=== PATIENT | female | born 1985 | race Caucasian/White ===

== ENCOUNTER → 2019-10-05 15:05 | Outpatient (CLI) | payer OTHER, MEDICAID, SELFPAY ==
[2019-10-05 15:41] LABS: Add Manual Diff / Slide Review NO; Basophils Absolute Auto 0 /uL (0-100); Basophils Percent Auto 0.4 % (0-2); Eosinophils Absolute Auto 0 /uL (0-450); Eosinophils Percent Auto 0.3 % (2-4); Hematocrit 31.7 % (36-46); Hemoglobin 10.6 g/dL (12.0-16.0); Lymphocytes Absolute Auto 2500 /uL (1100-4500); Lymphocytes Percent Auto 25.3 % (25-40); Mean Corpuscular HGB Conc 33.3 % (30-36); Mean Corpuscular Hemoglobin 26.9 PG (26-34); Mean Corpuscular Volume 80.7 fL (80-100); Monocytes Absolute Auto 700 /uL (0-900); Monocytes Percent Auto 6.9 % (3-14); Neutrophils Absolute Auto 6700 /uL (1500-7000); Neutrophils Percent Auto 67.1 % (50-75); Platelet Count 320 X10^3/uL (150-400); Red Blood Cell Count 3.93 X10^6/uL (4.0-5.2); Red Cell Distribution Width 15.6 % (11.6-14.8); White Blood Cell Count 9.9 X10^3/uL (4.5-11.0)
[2019-10-05 15:46] LABS: Appearance Urine UA SL CLOUDY; Bilirubin Urine UA NEGATIVE (NEGATIVE); Color Urine UA YELLOW; Glucose Urine UA NEGATIVE (Negative); Ketones Urine UA NEGATIVE (NEGATIVE); Leukocyte Esterase Urine UA 3+ (NEGATIVE); Nitrite Urine UA NEGATIVE (Negative); Occult Blood Urine UA NEGATIVE (Negative); Protein Urine UA NEGATIVE (Negative); Urobilinogen Urine UA 0.2 E.U./dL (0.2)
[2019-10-05 15:50] LABS: pH Urine UA 6.5 (4.5-8.0)
[2019-10-05 15:51] LABS: RBC Urine None Seen (0-5/HPF)
[2019-10-05 16:15] LABS: Amorphous Sediment Urine 2+; Bacteria Urine Moderate (10-30); Mucus Urine 1+ (Negative); Squamous Epithelial Cell Urine 10-30 /HPF (0-5/HPF); WBC Urine 10-30/HPF (0-5/HPF)
[2019-10-05 16:37] LABS: Hepatitis B Surface Antigen NEGATIVE s/c (NEGATIVE); Rubella Antibody IgG 26.3 IU/mL (>15)
[2019-10-05 16:54] LABS: HIV 1 & 2 Ab/Ag 4th Gen Combo NEGATIVE (NEGATIVE); Hep C Virus Ab w/Reflex Quant REACTIVE s/c (NEGATIVE)
[2019-10-05 20:56] LABS: Urine N gonorrhoeae NOT DETECTED
[2019-10-05 20:57] LABS: Urine Chlamydia NOT DETECTED
[2019-10-06 04:37] LABS: RPR Screen Non Reactive (Non Reactive)
[2019-10-06 07:13] LABS: Varicella IgG Antibody 2314 index (Immune >165)
== END ==
PROVIDERS: Family Provider Specialist; PCP Specialist; Referring Provider Specialist; Visit Provider Specialist
DX: Z34.91 Encounter for supervision of normal pregnancy, unspecified, first trimester (principal); R76.8 Other specified abnormal immunological findings in serum; Z34.81 Encounter for supervision of other normal pregnancy, first trimester; Z3A.11 11 weeks gestation of pregnancy
CPT/HCPCS: 36415; 80055; 81003; 81015; 86787; 86803; 86850; 86900; 86901; 87086; 87389; 87491; 87522; 87591

== ENCOUNTER → 2019-12-20 11:42 | Outpatient (CLI) | payer OTHER, MEDICAID, SELFPAY ==
[2019-12-22 20:44] LABS: AFP, Serum 57.6 ng/mL (.); Calc Gestational Age Ultrasound (.); Estriol, Free 2.13 ng/mL (.); Inhibin A, MoM 1.17 (.); Maternal Ethnicity Caucasian (.); Maternal Weight 132 lbs (.); Number of Fetuses No (.); OSBR Risk 1 IN 9540 (.); Results Report (.); Test Results *Screen Negative* (.); hCG, MoM 1.02 (.); hCG, Serum 29024 mIU/mL (.)
== END ==
PROVIDERS: Family Provider Specialist; PCP Specialist; Referring Provider Specialist; Visit Provider Specialist
DX: Z34.02 Encounter for supervision of normal first pregnancy, second trimester (principal); Z3A.18 18 weeks gestation of pregnancy
CPT/HCPCS: 36415; 82105; 82677; 84702; 86336

== ENCOUNTER → 2020-01-08 11:34 | Outpatient (CLI) | payer OTHER, MEDICAID, SELFPAY ==
--- NOTE | 2020-01-08 11:35 | DI.US.S_ITS ---
PROCEDURE: US OB >= 14 WEEKS FETUS INDICATIONS: 20 week anatomy scan OUTSIDE/PRIOR DATING DATA: First dating scan (date and location): 01/08/2020 . Estimated date of delivery (RIMA) from first dating scan: 05/18/2020 . TECHNIQUE: Real-time scanning was performed of the fetus, with image documentation and biometric measurements. Endovaginal scanning: No COMPARISON: [facility], , OB >= 14 WEEKS FETUS, 12/20/2019, 11:35. FINDINGS: General: A single living intrauterine gestation is present. Presentation: Vertex. Placenta: Placental position is anterior , without previa. Amniotic fluid index: 10.1 cm, normal range is 5-24 cm. heart rate: 130 beats per minute. Maternal cervical canal: 5.4 cm long. Normal lower limit is 2.5 cm. biometrics: Biparietal diameter: 21 weeks 1 day Head circumference: 21 weeks 2 days Abdominal circumference: 20 weeks 6 days Femur length: 21 weeks 6 days Estimated gestational age from initial scan: not applicable. Composite gestational age from present scan: 21 weeks 2 days Estimated weight and percentile: 414 g Measurement variability for biometric dating: +/- 7 days from 14 weeks to 15 weeks 6 days gestation, +/- 10 days from 16 weeks to 21 weeks 6 days gestation, +/- 2 weeks from 22 weeks to 27 weeks 6 days gestation, +/- 3 weeks for 28 weeks gestation or later. weight reference: 4500 g or EFW >90/95% is considered macrosomia or large for gestational age. EFW <10% is small for gestational age. EFW 5% or less is considered intra-uterine growth restriction. Anatomic survey: Neuro: Ventricles are non-dilated at less than 10 mm. Cisterna magna is normal at 3-11 mm. Cerebellum is normal in size and morphology. Nuchal skin fold: Normal at less than 6 mm between 14-21 weeks gestational age. Face: Nose and lips are normal. Facial profile not well seen. Spine: No evidence for spina bifida. Heart: 4-chambered heart is present, with normal ventricular outflow tracts. Diaphragm: Diaphragm is intact. Stomach: Left-sided stomach is present. Kidneys: No hydronephrosis. Normal is less than 5 mm in 2nd trimester, less than 7 mm in 3rd trimester. Cord: 3-vessel cord has orthotopic insertion. Bladder: Normal in size. Extremities: All 4 extremities identified. IMPRESSION: 1. Single living IUP with mean composite gestational age of 21 weeks 2 days corresponding to ultrasound RIMA of 05/18/2020. 2. Facial profile suboptimally visualized; otherwise normal anatomic survey. Dictated by: Clifton Allred [facility] Interpreted: Sonny Snow MD on 01/08/2020 at 15:46 Approved by: Sonny Snow M.D. on 01/08/2020 at 16:39
== END ==
PROVIDERS: Family Provider Specialist; PCP Specialist; Referring Provider Specialist; Visit Provider Specialist
DX: Z34.82 Encounter for supervision of other normal pregnancy, second trimester (principal); Z3A.20 20 weeks gestation of pregnancy
CPT/HCPCS: 76811

== ENCOUNTER → 2020-02-05 11:09 | Outpatient (CLI) | payer OTHER, MEDICAID, SELFPAY ==
[2020-02-05 13:08] LABS: Hematocrit 29.7 % (36-46); Hemoglobin 9.9 g/dL (12.0-16.0)
[2020-02-05 13:27] LABS: GTT (PREG) 1 Hour PP 50gm Dose 104 mg/dL (76-139)
== END ==
PROVIDERS: Family Provider Specialist; PCP Specialist; Referring Provider Specialist; Visit Provider Specialist
DX: Z34.82 Encounter for supervision of other normal pregnancy, second trimester (principal); Z3A.21 21 weeks gestation of pregnancy
CPT/HCPCS: 36415; 82950; 85014; 85018

== ENCOUNTER → 2020-04-25 12:16 | Outpatient (CLI) | payer OTHER, MEDICAID, SELFPAY ==
[2020-04-26 09:59] LABS: Strep Grp B PCR NEG for Grp B Strep
== END ==
PROVIDERS: Family Provider Specialist; PCP Specialist; Visit Provider Specialist
DX: Z34.83 Encounter for supervision of other normal pregnancy, third trimester (principal); Z3A.37 37 weeks gestation of pregnancy
CPT/HCPCS: 87653

== ENCOUNTER 2020-05-15 20:42 | Inpatient (IN) | payer OTHER, MEDICAID, SELFPAY ==
[2020-05-15] MEDS: miSOPROStoL 25 MCG TABLET VAG (21:30)
[2020-05-15 21:43] VITALS: BP 122/61
[2020-05-15 22:09] LABS: COVID19 - ADMIT (NP swab/PCR) Negative (Negative)
[2020-05-16 01:42] LABS: Add Manual Diff / Slide Review NO; Basophils Absolute Auto 0 /uL (0-100); Basophils Percent Auto 0.3 % (0-2); Eosinophils Absolute Auto 100 /uL (0-450); Eosinophils Percent Auto 0.7 % (2-4); Hematocrit 30.4 % (36-46); Hemoglobin 9.9 g/dL (12.0-16.0); Lymphocytes Absolute Auto 2400 /uL (1100-4500); Lymphocytes Percent Auto 22.7 % (25-40); Mean Corpuscular HGB Conc 32.6 % (30-36); Mean Corpuscular Hemoglobin 26.1 PG (26-34); Mean Corpuscular Volume 80.2 fL (80-100); Monocytes Absolute Auto 900 /uL (0-900); Neutrophils Absolute Auto 7000 /uL (1500-7000); Neutrophils Percent Auto 67.3 % (50-75); Platelet Count 296 X10^3/uL (150-400); Red Cell Distribution Width 15.2 % (11.6-14.8); White Blood Cell Count 10.4 X10^3/uL (4.5-11.0)
[2020-05-16] MEDS: miSOPROStoL 25 MCG TABLET VAG (02:44)
--- NOTE | 2020-05-16 07:47 | PM.OBHP.1 ---
OB HPI Date/Time Date of admission: 05/15/20 Date Patient Seen: 05/16/20 Time Patient Seen: 07:47 History of Present Condition Chief complaint: induction : 4 Para: 1 Estimated Date of Delivery: 05/16/20 Estimated Gestational Age (weeks): 40 Narrative: Bethany Ford is a 35 year old female admitted for induction for distance from the hospital Indications Indication for induction OB: maternal discomfort History of Present care: good care, initiated at week # (8), number of visits (12) and pounds weight gain (36) Dating criteria: based on 1st trimester US only Ultrasounds: normal mid trimester US Obstetrical complications: none Medical complications: none Preadmission Labs Blood type: O (+) positive -: Antibody screen: negative, GBS status: negative, HBsAG: negative, HIV: negative, HSV 1: positive, HSV 2: positive and RPR/VDLR: negative -: Chlamydia screen: not detected and Gonorrhea screen: not detected -: Rubella: immune and Varicella: immune HCAB: reactive (Viral load negative) Quad screen: Normal 1 hr GTT: 104 Prior (ies) History: 11/27/16 39 week gestation 6# 11 oz male infant, epidural catheter Evaluation Evaluation Baseline heart rate: 125 Variability: Moderate (11-25) monitor accelerations: Present monitor decelerations: Absent Contraction Frequency (minutes): 2 Uterine Contraction Intensity: Mild Category of Tracing: Reactive Status: Category l Cervical dilation (cm): 1 Cervical effacement (%): 50 station: -2 Laboratory results: Laboratory Tests 05/15/20 05/16/20 05/16/20 21:20 01:20 01:20 WBC 10.4 RBC 3.80 L Hgb 9.9 L Hct 30.4 L MCV 80.2 MCH 26.1 MCHC 32.6 RDW 15.2 H Plt Count 296 Neut % (Auto) 67.3 Lymph % (Auto) 22.7 L [place] % (Auto) 9.0 Eos % (Auto) 0.7 L Baso % (Auto) 0.3 Neut # (Auto) 7000 Lymph # (Auto) 2400 [place] # (Auto) 900 Eos # (Auto) 100 Baso # (Auto) 0 SARS-CoV-2 (PCR) Negative Blood Type O Positive Antibody Screen Negative [facility] Medical History (Updated 12/20/19 @ 11:39 by Leatha De Jesus MD) Anemia ASCUS (atypical squamous cells of undetermined significance) on gynecologic Papanicolaou smear complicating , antepartum Bronchitis H/O benign gastric tumor (~2007) HPV (human papilloma virus) anogenital infection HSV-1 (herpes simplex virus 1) 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 Father Family estrangement Grandfather Dementia Melanoma Grandmother Breast cancer Grandfather AA (alcohol abuse) Grandmother No problems noted. Social History marital status: number of children: 1 household members: spouse and children lives independently: Yes pets and animals: Yes (X 1 dog) education level: college occupational status: employed current occupational exposures/hazards: No pauline/christian: Uatsdin special pauline needs: No Smoking Status: Never smoker Tobacco: How many years used: 8 second hand exposure: No alcohol intake: former substance use type: former substance user, tranquilizers, opiates and IV drugs Meds Home Medications and Allergies Home Medications Medication Instructions Recorded Confirmed Type prenat.vits,mandy,nko-ngeg-gfzfv 1 tab PO DAILY 10/03/19 05/15/20 History valacyclovir 500 mg tablet 500 mg PO .COMPLEX #30 tab 05/14/20 05/15/20 Rx Allergies Allergy/AdvReac Type Severity Reaction Status Date / Time Benzodiazepines AdvReac Severe Addiction Verified 05/08/20 12:08 History : please do not prescribe Opioids - Morphine Analogues AdvReac Severe Addiction Verified 05/08/20 12:08 History : please do not prescribe No Known Allergies Allergy Uncoded 05/08/20 12:08 Review of Systems Review of Systems Narrative: Patient was admitted for induction for distance from the hospital. Despite being suppression antiviral she had an outbreak of herpes on her leg. She has not had rupture membranes. Good movement. No headaches, scotomata, epigastric pain. ROS: Yes All systems reviewed with the patient and are negative except as otherwise documented Exam Vital Signs (past 8 hours): Blood pressure 111/56, pulse of 80, temperature 97.3? Narrative Exam Narrative: HEENT exam within normal limits. Lungs are clear to auscultation percussion. Heart is regular rate and rhythm no S3-S4 or murmurs. Abdomen is gravid. Fetus is vertex. Extremities right inner thigh approximately 20 cm from the vulva is a 2 cm spot that they currently have occlusive sealed area of herpes. Objective Labs Result Diagrams: 05/16/20 01:20 Labs: Laboratory Results - last 24 hr 05/15/20 05/16/20 05/16/20 21:20 01:20 01:20 WBC 10.4 RBC 3.80 L Hgb 9.9 L Hct 30.4 L MCV 80.2 MCH 26.1 MCHC 32.6 RDW 15.2 H Plt Count 296 Neut % (Auto) 67.3 Lymph % (Auto) 22.7 L [place] % (Auto) 9.0 Eos % (Auto) 0.7 L Baso % (Auto) 0.3 Neut # (Auto) 7000 Lymph # (Auto) 2400 [place] # (Auto) 900 Eos # (Auto) 100 Baso # (Auto) 0 SARS-CoV-2 (PCR) Negative Blood Type O Positive Antibody Screen Negative Assessment and Plan Assessment and Plan Assessment and Plan narrative: 40 week gestation admitted for induction for distance from the hospital. Patient received Cytotec last night. Currently she is cassia too much to start Pitocin. She has not had any significant cervical change however.
[2020-05-16] MEDS: OXYTOCIN PREMIX 30 UNIT/500 ML PLAST..BAG 200 UNIT IV (08:55)
--- NOTE | 2020-05-16 12:07 | PM.PREOP ---
Pre-operative Note COVID-19 COVID-19 status: Negative Result date/Date tested (Pos, Neg/Pending): 05/15/20 Interval Note History & Physical reviewed/Exam performed by Physician: Yes Changes to H&P: Yes H&P completed within 30 days and has changed as indicated here:: distress in labor
[2020-05-16] MEDS: CEFAZOLIN 2 GM/100 ML FROZ.PIGGY IV (12:21)
--- NOTE | 2020-05-16 12:38 | SUR.OPER ---
Supine on Padded OR bed, head on pillow, safety belt at thigh, arms secured on padded arm boards at <90 degrees abduction. Bump under right buttock. Legs uncrossed with pillow under knees, gel pad to heels, tape over blanket to lower legs.
[2020-05-16] MEDS: ACETAMINOPHEN IV 1,000 MG/100 ML VIAL 400 MG IV (12:58)
--- NOTE | 2020-05-16 12:59 | SUR.OPER ---
viable baby girl born at 1236, placenta delivered at 1239, 9/9, cord blood and placenta sent with OB RN
[2020-05-16 13:18] VITALS: BP 119/67; PULSE 85; RESP 20; TEMP 37.1; O2SAT 100
[2020-05-16 13:23] VITALS: BP 105/78; PULSE 85; RESP 14; O2SAT 100
--- NOTE | 2020-05-16 13:25 | P.OP_ITS ---
Operative Date/Time/Diagnoses Date of procedure: 05/16/20 Time of procedure: 13:26 Pre-op diagnosis: intolerance of labor Post-op diagnosis: same Procedure & Clinicians Procedure: Primary low-transverse section Same procedure as scheduled: Yes Indications: intolerance of labor Surgeon: Leatha De Jesus Helicopter Technician: Ricarda Shea Click Yes if Unassisted: No Anesthesia Type: Epidural Operative Notes Findings: Normal tubes, ovaries, and uterus. Viable female infant with double nuchal cord and body cord. Apgars were 8 and 9. Weight 6 lb 13 oz. Closure Type: primary Applied: catheter (Perry) Estimated Blood Loss (mL): 450 Blood products transfused: none Procedure in detail: The patient was brought to the operating room where she underwent a bolus of her epidural for anesthesia. She was placed in a supine position with a left lateral tilt. A Perry catheter was in place. Pulsatile stockings were placed and functional throughout the case. 2 g of Ancef were given IV prior to the incision. Warming was in place. The patient was prepped and draped in usual sterile fashion. A low transverse incision was made with a scalpel and the incision was carried down to the fascial layer which was incised transversely with scissors. The assistant manager/embalmer did her side of the incision. The midline attachments are superiorly and inferiorly. Some bleeding was controlled Bovie. The rectus muscles were in the midline and the peritoneal incision was made with no damage to internal structures. The peritoneum was incised and superiorly and inferiorly. The incision was stretched with the surgeon and assistant manager/embalmer placing traction. Bladder blade was placed and a bladder flap was developed and the bladder held away from the lower uterine segment. An incision was made in the uterus with the scalpel and the incision was extended with stretching. It was difficult to elevate the head out of the pelvis so Dr. Shea did a vaginal elevation of the head to allow delivery. The head was elevated out of the abdomen and with fundal pressure by the assistant manager/embalmer the baby was delivered. The was bulb suctioned for clear fluid and handed off to the warmer. Cord blood was collected. The placenta delivered spontaneously with traction. The uterus was cleaned with clean laps. The uterine incision was closed in 2 layers of 0 chromic suture the first a running locking layer the second an imbricating layer. The assistant manager/embalmer was helping to expose the incision. The bladder peritoneum was repaired with 2-0 Vicryl suture. The gutters were cleaned of any remaining fluids and ovaries and tubes were observed to be normal. Adequate hemostasis was noted. The perineum was closed with 2-0 Vicryl suture. The fascia layer was closed with 0 Vicryl suture with 2 stitches. The assistant manager/embalmer repairing half the incision with helping to retract and expose the incision for the other half. The incision was irrigated and adequate hemostasis noted. The incision was closed with interrupted 3-0 Vicryl sutures and then a subcuticular stitch of 4-0 Vicryl suture. Steri-Strips were placed. The uterus was massaged to remove any clots. The patient went to recovery room in good condition. Counts of instruments and sponges were correct. Dr. Shea was present throughout the case to assist with retraction, vaginal elevation of the infant's head to deliver the , and suturing half the fascia. Complications: none Post-operative Condition: stable Disposition: other ( Center) Plan for aftercare: Routine post section
[2020-05-16 13:28] VITALS: BP 114/70; PULSE 81; RESP 14; O2SAT 100
[2020-05-16 13:32] VITALS: PULSE 77; RESP 15; TEMP 37.1; O2SAT 100
[2020-05-16] MEDS: LACTATED RINGERS 1,000 ML 100 ML IV (15:04)
[2020-05-16] MEDS: diphenhydrAMINE 50 MG/ML VIAL 25 MG IV (19:49)
[2020-05-16] MEDS: LANOLIN OINT 7 GM 1 APPLIC TOP (19:49)
[2020-05-16] MEDS: KETOROLAC 30 MG/ML VIAL IV (19:49)
[2020-05-16] MEDS: ACETAMINOPHEN 325 MG TABLET 650 MG PO (20:05)
[2020-05-17] MEDS: LACTATED RINGERS 1,000 ML 100 ML IV (00:58)
[2020-05-17] MEDS: ACETAMINOPHEN 325 MG TABLET 650 MG PO ×3 (02:16→14:50)
[2020-05-17] MEDS: KETOROLAC 30 MG/ML VIAL IV ×2 (02:16→08:30)
[2020-05-17 06:27] LABS: Add Manual Diff / Slide Review NO; Basophils Absolute Auto 0 /uL (0-100); Basophils Percent Auto 0.2 % (0-2); Eosinophils Absolute Auto 0 /uL (0-450); Eosinophils Percent Auto 0.2 % (2-4); Hemoglobin 7.6 g/dL (12.0-16.0); Lymphocytes Absolute Auto 1500 /uL (1100-4500); Lymphocytes Percent Auto 12.3 % (25-40); Mean Corpuscular HGB Conc 32.6 % (30-36); Mean Corpuscular Hemoglobin 26.1 PG (26-34); Monocytes Absolute Auto 900 /uL (0-900); Monocytes Percent Auto 7.5 % (3-14); Neutrophils Absolute Auto 9800 /uL (1500-7000); Neutrophils Percent Auto 79.8 % (50-75); Platelet Count 224 X10^3/uL (150-400); Red Blood Cell Count 2.92 X10^6/uL (4.0-5.2); Red Cell Distribution Width 15.1 % (11.6-14.8); White Blood Cell Count 12.3 X10^3/uL (4.5-11.0)
[2020-05-17 06:33] LABS: Hematocrit 23.3 % (36-46)
[2020-05-17] MEDS: FERROUS SULFATE 325 MG TABLET PO (08:29)
[2020-05-17] MEDS: valACYclovir 500 MG TABLET PO (08:32)
--- NOTE | 2020-05-17 14:29 | P.DS_ITS ---
Discharge Providers Provider Date of admission: 05/15/20 20:42 Discharge Date: 05/17/20 Primary care physician: Heather Sandoval MD Consults: 05/16/20 07:33 Consult to Anesthesiology Urgent Comment: Consulting Provider: Anesthesiologist Reason for consultation: Epidural Has provider been notified: No 05/16/20 14:34 Consult to Electrical Journeyman Routine Comment: Discharge provider: Leatha De Jesus MD Summary Hospital Course Date Patient Seen: 05/17/20 Time Patient Seen: 14:30 Diagnoses: 40 week gestation with intolerance of labor requiring primary low-transverse section Hospital Course: Patient arrived on Labor and delivery for induction for distance from the hospital. The fetus began having severe recurrent late decelerations so decision was made to proceed with primary low-transverse section. Baby had a double nuchal cord and body cord. Both baby and mother are doing well. Breast-feeding is going well. Pain is under control with Motrin and Tylenol. Patient is passing gas. She is urinating and ambulating well. She denies headaches, scotomata, epigastric pain. No depression. Peripartum Data Infant Delivery Method: Emergency Section ( intolerance of labor) Procedures: Cytotec induction, Pitocin induction, epidural catheter, primary low-transverse section complications: none [place] 1: Gender: Female Disposition of : home Discharge Diagnosis (1) Delivery by section using transverse incision of lower segment of uterus: Status: Acute Status at Discharge Cognitive/behavioral status at discharge: oriented Functional status at discharge: independent ambulation Overall status at discharge: patient is progressing back to baseline Time Spent with Patient Time attestation: Total time spent providing and/or coordinating discharge services: Time spent: Less than 30 minutes Objective Labs Result Diagrams: 05/17/20 05:55 Labs: Laboratory Results - last 24 hr 05/17/20 05:55 WBC 12.3 H RBC 2.92 L Hgb 7.6 L Hct 23.3 L MCV 80.0 MCH 26.1 MCHC 32.6 RDW 15.1 H Plt Count 224 Neut % (Auto) 79.8 H Lymph % (Auto) 12.3 L [place] % (Auto) 7.5 Eos % (Auto) 0.2 L Baso % (Auto) 0.2 Neut # (Auto) 9800 H Lymph # (Auto) 1500 [place] # (Auto) 900 Eos # (Auto) 0 Baso # (Auto) 0 Exam Vital Signs (past 8 hours): Blood pressure 110/70, pulse 90, temperature 98? Oxygen Delivery Method Room Air Narrative Exam Narrative: Abdomen is soft, nontender. Uterus is firm, at U, minimally tender. Dressing is clean, dry, intact. Mild lochia. Extremities without harrison a and nontender. Patient is Rh positive and rubella immune. Patient declines the Tdap. Discharge Plan Discharge Plan Patient Disposition: Home Discharge orders & Medications Prescriptions: New ibuprofen 600 mg Tablet 600 mg PO Q6HR PRN (Reason: Fever/Mild Pain (1-3)) Qty: 30 RF: 0 Continued valacyclovir 500 mg tablet 500 mg PO .COMPLEX Qty: 30 RF: 0 prenat.vits,mandy,iog-evlh-wjjgg Tablet 1 tab PO DAILY RF: 0 Follow up/Referrals: Leatha De Jesus MD [Physician] - (05/23, -at 12:15 for dressing removal in incision check with Dr De Jesus 06/13, -at 11:30 for [address] post check with Dr De Jesus) Heather Sandoval MD [Primary Care Provider] - Diet/Activity/Treatments Diet: Regular Activity: Nothing in vagina or lifting over 20 lb for 6 weeks Skin/Wound/Dressing Care Report to your healthcare provider any signs of infection, such as:: chills, fever, increased pain and unusual redness Visit Report/Discharge Packet Stand Alone Forms: Discharge: Care Discharge Data Primary Care Provider: Heather Sandoval
[2020-05-17] MEDS: IBUPROFEN 600 MG TABLET PO (14:49)
[2020-05-17 18:15] VITALS: BP 110/70; PULSE 77; RESP 16; TEMP 36.6
== END 2020-05-17 18:50 | disposition home or self-care (01) | DRG 540 ==
PROVIDERS: Admitting Provider Specialist; Family Provider Specialist; PCP Specialist; Referring Provider Specialist; Visit Provider Specialist
PROC: 10D00Z1 Extraction of Products of Conception, Low, Open Approach (ICD-10-PCS; CPT 59514; principal; 2020-05-16 12:30)
DX: O98.32 Other infections with a predominantly sexual mode of transmission complicating childbirth (principal); B00.9 Herpesviral infection, unspecified; Z3A.40 40 weeks gestation of pregnancy; Z37.0 Single live birth; Z20.822 Contact with and (suspected) exposure to COVID-19; O69.81X0 Labor and delivery complicated by cord around neck, without compression, not applicable or unspecified; O76 Abnormality in fetal heart rate and rhythm complicating labor and delivery
CPT/HCPCS: 01967; 01968; 36415; 59050; 59514; 85025; 86850; 86900; 86901; 87635; G0379; J0131; J0690; J1200; J1885; J2274; J2405; J2590